=== PATIENT | female | born 1965 | race Caucasian/White ===

== ENCOUNTER 2018-04-02 17:55 | Emergency (ER) | payer SELFPAY ==
[2018-04-02 18:18] VITALS: BP 170/80
[2018-04-02] MEDS ORDERED: OXYCODONE-ACETAMINOPHEN 5-325 MG TABLET PO ONE (20:52)
[2018-04-02] MEDS ORDERED: ONDANSETRON 4 MG TAB.RAPDIS PO ONE (20:52)
--- NOTE | 2018-04-02 20:55 | ER Document Report ---
Addendum entered and electronically signed by SUNITHA DU PA 04/03/18 03:51: Course - Re-evaluation Re-evalutation: I was called into the blood drawing area by the tech after initial attempt had been made to obtain patient's blood. This was on patient's request (to see me). Patient pointed out to me an area in the left antecubital area that appears to have some infiltration after phlebotomy attempt was made, no other abnormalities were noted. Patient states she is very upset about this, she states that she will no longer be treated at the facility, she states she wanted to show me this but she is leaving. I explained that she could have any number of abnormalities including infectious, surgical, or even lethal abnormalities wrong with her based on her presenting symptoms and her history, I urged her to let us attempt to continue her workup. Patient declined. Patient states that she understands that she could have a life-threatening abnormality, however she will be signing out AGAINST MEDICAL ADVICE and we will not be able to change her mind. I did attempt to change her mind and offered again to treat her here with additional attempt but she declined. She does appear to be completely oriented and capable of making clear decisions. Patient verbalizes understanding of the risks, signed AGAINST MEDICAL ADVICE paperwork, and left the facility. - Vital Signs Vital signs: Temp Pulse Resp BP Pulse Ox 98.7 F 109 H 16 170/80 H 100 04/02/18 18:15 04/02/18 18:15 04/02/18 18:15 04/02/18 18:15 04/02/18 18:15 Addendum entered and electronically signed by SUNITHA DU PA 04/02/18 21:18: Discharge - Discharge Clinical Impression: Flank pain Abdominal pain Qualifiers: Abdominal location: upper abdomen, unspecified Qualified Code(s): R10.10 - Upper abdominal pain, unspecified Vomiting Qualifiers: Vomiting type: unspecified Vomiting Intractability: unspecified Nausea presence: with nausea Qualified Code(s): R11.2 - Nausea with vomiting, unspecified Disposition: AGAINST MEDICAL ADVICE Additional Instructions: You are signing out AGAINST MEDICAL ADVICE at this time. It is possible that you have a surgical or infectious abnormality that could lead to severe complications or even . I strongly recommend that you return at any time for additional evaluation and treatment. Original Note: ED Medical Screen (RME) - General Chief Complaint: Abdominal Pain Stated Complaint: FLANK PAIN/VOMITING/NAUSEA Time Seen by Provider: 04/02/18 20:51 Notes: 52-year-old female with chief complaint of upper abdominal pain radiating around to her right flank and an episode of vomiting at 5:30 PM. Pain is sharp. She is a history of cholecystectomy, chronic pancreatitis, Deisy-en-Y, common bile duct surgery. She denies fever. She is having bowel movements. She denies chest pain, shortness of breath. TRAVEL OUTSIDE OF THE [place] IN LAST 30 DAYS: No - Related Data Allergies/Adverse Reactions: adhesive tape Allergy (Verified 04/02/18 18:13) aloe Allergy (Verified 04/02/18 18:10) butorphanol [From Stadol] Allergy (Verified 04/02/18 18:13) erythromycin base Allergy (Verified 04/02/18 18:13) ketorolac [From Toradol] Allergy (Verified 04/02/18 18:13) levofloxacin [From Levaquin] Allergy (Verified 04/02/18 18:13) morphine Allergy (Verified 04/02/18 18:10) piperacillin Allergy (Verified 04/02/18 18:13) promethazine [From Phenergan] Allergy (Verified 04/02/18 18:13) tazobactam Allergy (Verified 04/02/18 18:13) tramadol Allergy (Verified 04/02/18 18:13) bactrin Allergy (Uncoded 04/02/18 18:13) eggs Allergy (Uncoded 04/02/18 18:13) zosyn Allergy (Uncoded 04/02/18 18:13) Physical Exam - Vital signs Vitals: Temp Pulse Resp BP Pulse Ox 98.7 F 109 H 16 170/80 H 100 04/02/18 18:15 04/02/18 18:15 04/02/18 18:15 04/02/18 18:15 04/02/18 18:15 - General General appearance: Appears well In distress: None Course - Re-evaluation Re-evalutation: I have greeted and performed a rapid initial assessment of this patient. A comprehensive ED assessment and evaluation of the patient, analysis of test results and completion of the medical decision making process will be conducted by additional ED providers. - Vital Signs Vital signs: Temp Pulse Resp BP Pulse Ox 98.7 F 109 H 16 170/80 H 100 04/02/18 18:15 04/02/18 18:15 04/02/18 18:15 04/02/18 18:15 04/02/18 18:15
== END 2018-04-02 21:28 | disposition left against medical advice (07) ==
LOC: ER 17:55
DX: R10.9 Unspecified abdominal pain (principal); R10.10 Upper abdominal pain, unspecified; R11.2 Nausea with vomiting, unspecified; Z88.6 Allergy status to analgesic agent; Z90.49 Acquired absence of other specified parts of digestive tract; Z91.012 Allergy to eggs
CPT/HCPCS: 99283

== ENCOUNTER 2018-04-05 11:04 | Emergency (ER) | payer SELFPAY ==
--- NOTE | 2018-04-05 13:35 | ER Document Report ---
ED Medical Screen (RME) - General Chief Complaint: Abdominal Pain Stated Complaint: ABDOMINAL PAIN Time Seen by Provider: 04/05/18 13:26 Notes: 52-year-old female patient comes emergency room complaining of abdominal pain. She was seen here on 04/02/2018 and had right flank pain at that time with vomiting. They had difficulty getting blood and she left AMA after the PIT rapid medical evaluation. She returns today stating the pain is all in her upper abdomen now for the last 2 days, she is now clammy, some vomiting, and has a mucousy type diarrhea. She states she does have a history of a pancreatic cyst, does not know if it is a pseudocyst the cyst was first discovered 10 months ago. She does have chronic pancreatitis. She had an MRCP in [place], and then a second 1 3 months ago in [place]. She is from [place] and was visiting family in [place] at the time. She is now visiting here in the [place] area. I have greeted and performed a rapid initial assessment of this patient. A comprehensive ED assessment and evaluation of the patient, analysis of test results and completion of the medical decision making process will be conducted by additional ED providers. TRAVEL OUTSIDE OF THE [place] IN LAST 30 DAYS: No - Related Data Allergies/Adverse Reactions: adhesive tape Allergy (Verified 04/05/18 11:07) aloe Allergy (Verified 04/05/18 11:07) butorphanol [From Stadol] Allergy (Verified 04/05/18 11:07) erythromycin base Allergy (Verified 04/05/18 11:07) ketorolac [From Toradol] Allergy (Verified 04/05/18 11:07) levofloxacin [From Levaquin] Allergy (Verified 04/05/18 11:07) morphine Allergy (Verified 04/05/18 11:07) piperacillin Allergy (Verified 04/05/18 11:07) promethazine [From Phenergan] Allergy (Verified 04/05/18 11:07) tazobactam Allergy (Verified 04/05/18 11:07) tramadol Allergy (Verified 04/05/18 11:07) bactrin Allergy (Uncoded 04/05/18 11:07) eggs Allergy (Uncoded 04/05/18 11:07) zosyn Allergy (Uncoded 04/05/18 11:07) Past Medical History - Past Medical History Cardiac Medical History: Reports: Hx Hypercholesterolemia Renal/ Medical History: Denies: Hx Peritoneal Dialysis Past Surgical History: Reports: 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
[2018-04-05 14:47] LABS: APPEARANCE,URINE CLOUDY; BILIRUBIN,URINE NEGATIVE (NEGATIVE); COLOR,URINE YELLOW; GLUCOSE, URINE NEGATIVE (NEGATIVE); KETONES,URINE NEGATIVE (NEGATIVE); LEUKOCYTE ESTERASE,URINE TRACE (NEGATIVE); NITRITE,URINE POSITIVE (NEGATIVE); PROTEIN,URINE 30 mg/dL (NEGATIVE); URINE SPECIFIC GRAVITY 1.034
[2018-04-05] MEDS ORDERED: ONDANSETRON HCL INJ/PF 4 MG/2 ML SDV IM ONE ×2 (15:38→18:06)
[2018-04-05] MEDS ORDERED: HYDROMORPHONE HCL INJ/PF 2 MG/ML AMPULE IM ONE ×2 (15:38→18:05)
[2018-04-05 15:41] LABS: ABSOLUTE BASOPHILS # (AUTO) 0.1 10^3/uL (0.0-0.2); ABSOLUTE MONOCYTES (AUTO) 0.4 10^3/uL (0.1-1.4); ABSOLUTE NEUT (AUTO) 4.5 10^3/uL (1.7-8.2); BASOPHILS % (AUTO) 0.8 % (0-2); EOSINOPHILS % (AUTO) 0.4 % (0-6); HEMATOCRIT 40.5 % (36.0-47.0); HEMOGLOBIN 13.7 g/dL (12.0-15.5); LYMPHOCYTES % (AUTO) 28.7 % (13-45); MEAN CORPUSCULAR HEMOGLOBIN 28.8 pg (27.0-33.4); MEAN CORPUSCULAR HGB CONC 33.9 g/dL (32.0-36.0); MEAN CORPUSCULAR VOLUME 85 fl (80-97); MONOCYTES % (AUTO) 5.3 % (3-13); PLATELET COUNT 335 10^3/uL (150-450); RED BLOOD COUNT 4.77 10^6/uL (3.72-5.28); RED CELL DISTRIBUTION WIDTH 13.9 % (11.5-14.0); SEGMENTED NEUTROPHILS % (AUTO) 64.8 % (42-78); TOTAL CELLS COUNTED % (AUTO) 100 %; WHITE BLOOD COUNT 6.9 10^3/uL (4.0-10.5)
[2018-04-05 16:00] LABS: ALANINE AMINOTRANSFERASE 26 U/L (9-52); ALBUMIN 4.7 g/dL (3.5-5.0); ALKALINE PHOSPHATASE 106 U/L (38-126); ANION GAP 11 (5-19); ASPARTATE AMINO TRANSFERASE 17 U/L (14-36); BILIRUBIN,DIRECT 0.3 mg/dL (0.0-0.4); BILIRUBIN,TOTAL 0.4 mg/dL (0.2-1.3); BLOOD UREA NITROGEN 16 mg/dL (7-20); CALCIUM 9.6 mg/dL (8.4-10.2); CARBON DIOXIDE 25 mmol/L (22-30); CHLORIDE 104 mmol/L (98-107); GLUCOSE 123 mg/dL (75-110); LIPASE 287.4 U/L (23-300); POTASSIUM 4.2 mmol/L (3.6-5.0); SODIUM 140.4 mmol/L (137-145); TOTAL PROTEIN 7.8 g/dL (6.3-8.2)
--- NOTE | 2018-04-05 18:19 | ER Document Report ---
ED General - General Chief Complaint: Abdominal Pain Stated Complaint: ABDOMINAL PAIN Time Seen by Provider: 04/05/18 13:26 Mode of Arrival: Ambulatory Information source: Patient TRAVEL OUTSIDE OF THE [place] 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 Nothing is a seemed to help with this pain, eating seems to make it somewhat worse. She has had her gallbladder removed in the past as well as appendix and is currently followed at [facility] for these issues by a surgeon because of her difficulty she has not been in contact with them recently. Does take multiple medications to try and help with her pain. - Related Data Allergies/Adverse Reactions: adhesive tape Allergy (Verified 04/05/18 11:07) aloe Allergy (Verified 04/05/18 11:07) butorphanol [From Stadol] Allergy (Verified 04/05/18 11:07) erythromycin base Allergy (Verified 04/05/18 11:07) ketorolac [From Toradol] Allergy (Verified 04/05/18 11:07) levofloxacin [From Levaquin] Allergy (Verified 04/05/18 11:07) morphine Allergy (Verified 04/05/18 11:07) piperacillin Allergy (Verified 04/05/18 11:07) promethazine [From Phenergan] Allergy (Verified 04/05/18 11:07) tazobactam Allergy (Verified 04/05/18 11:07) tramadol Allergy (Verified 04/05/18 11:07) bactrin Allergy (Uncoded 04/05/18 11:07) eggs Allergy (Uncoded 04/05/18 11:07) zosyn Allergy (Uncoded 04/05/18 11:07) Past Medical History - General Information source: Patient - Social History Smoking Status: Never Smoker Chew tobacco use (# tins/day): No Frequency of alcohol use: None Drug Abuse: None Family History: None Patient has suicidal ideation: No Patient has homicidal ideation: No - Past Medical History Cardiac Medical History: Reports: Hx Hypercholesterolemia Renal/ Medical History: Denies: Hx Peritoneal Dialysis Past Surgical History: Reports: 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, Hx Bowel Surgery, Hx Cholecystectomy, Hx Hysterectomy, Hx Orthopedic Surgery Review of Systems - Review of Systems -: Yes All other systems reviewed and negative Physical Exam - Vital signs Vitals: Temp Pulse Resp BP Pulse Ox 98.0 F 111 H 18 159/74 H 99 04/05/18 11:16 04/05/18 11:16 04/05/18 11:16 04/05/18 11:16 04/05/18 11:16 - General General appearance: Alert, Anxious In distress: Moderate - HEENT Head: Normocephalic Eyes: Normal Conjunctiva: Normal Cornea: Normal Extraocular movements intact: Yes Eyelashes: Normal Pupils: PERRL - Respiratory Respiratory status: No respiratory distress Chest status: Nontender Breath sounds: Normal Chest palpation: Normal - Cardiovascular Rhythm: Regular Heart sounds: Normal auscultation - Abdominal Inspection: Obese, Other - Profound number of well-healed incision scars across the abdomen Distension: No distension Tenderness: Tender - Back Back: Normal, Nontender - Extremities General upper extremity: Normal inspection, Nontender, Normal color, Normal ROM, Normal temperature General lower extremity: Normal inspection, Nontender, Normal color, Normal ROM, Normal temperature, Normal weight bearing. No: Byron's sign - Neurological Neuro grossly intact: Yes Cognition: Normal Orientation: AAOx4 Kentrell Coma Scale Eye Opening: Spontaneous Kentrell Coma Scale Verbal: Oriented Kentrell Coma Scale Motor: Obeys Commands Kentrell Coma Scale Total: 15 Speech: Normal Motor strength normal: LUE, RUE, LLE, RLE Sensory: Normal - Psychological Associated symptoms: Normal affect, Normal mood Course - Re-evaluation Re-evalutation: On my initial evaluation of this patient she demonstrated extreme frustration related to the delay in her care which she perceived as a result of her poor access from her veins. I discussed with the patient the intent to help treat her, we proceeded with the administration of IM medications for both pain and nausea and a fashion to allow further workup including chemistry as well as CMP and CT of the abdomen and pelvis for her profound tenderness in the abdomen most prominent on the right side. Her CBC was normal, her CMP was normal. She was able to tolerate p.o. thereafter. She was able to tolerate oral contrast. She received another dose of narcotic analgesia as well as nausea medication. Her urine demonstrated what appeared to be evidence of possible pyelonephritis. With her urine as such was concern for possible underlying infection. Her CT did not demonstrate any obvious intra-abdominal pathology such as but not limited to diverticulitis, bowel obstruction, bowel perforation, it is noteworthy that she did have a year in the biliary tree though this is likely result of her previous surgeries and not unexpected given her resection in the past. Her abdominal examination improved on my reassessment, we discussed treatment options and opted for pursuit of outpatient management of her presumptive urinary tract infection. She will be discharged with return precautions and treatment we will initially try nitrofurantoin and if she does not have improvement on this medication she will change to ciprofloxacin. She is also been given a prescription for Zofran and some narcotic pain medication because she is already on chronic pain medication I believe this is warranted. At the time of discharge her abdominal examination was benign she was well- appearing able tolerate p.o. - Vital Signs Vital signs: Temp Pulse Resp BP Pulse Ox 98.6 F 86 16 149/71 H 98 04/05/18 21:49 04/05/18 21:49 04/05/18 21:49 04/05/18 21:49 04/05/18 21:49 - Laboratory Result Diagrams: 04/05/18 15:29 04/05/18 15:29 Laboratory results interpreted by me: 04/05/18 04/05/18 14:26 15:29 Glucose 123 H Urine Protein 30 H Urine Nitrite POSITIVE H Urine Urobilinogen 2.0 H Ur Leukocyte Esterase TRACE H Discharge - Discharge Clinical Impression: Pyelonephritis, Flank pain, Nausea Abdominal pain Qualifiers: Abdominal location: unspecified location Qualified Code(s): R10.9 - Unspecified abdominal pain Condition: Good Disposition: HOME, SELF-CARE Instructions: Ciprofloxacin (OM), Pyelonephritis (OM) Additional Instructions: You were seen today in the emergency department for your abdominal pain and flank pain. you had evaluation including a CAT scan, urine test, blood test. I think that your pain is from pyelonephritis. You been given a medication to use to try and help with this pain. Use medication only as needed. Start taking the Macrobid, if you did not have any improvement with the Macrobid and 2 days switch it to the ciprofloxacin prescribed to you. Use the nausea medication only as needed. Return in case of worsening fevers or chills inability eat or drink or other symptoms otherwise schedule an appointment with your primary physician this week. Prescriptions: Ciprofloxacin HCl [Cipro] 500 mg PO BID #14 tablet Nitrofurantoin Macrocrystal [Macrodantin] 100 mg PO BID #20 capsule Ondansetron [Zofran Odt 4 mg Tablet] 1 - 2 tab PO Q4H PRN #15 tab.rapdis PRN Reason: For Nausea/Vomiting Oxycodone HCl/Acetaminophen [Percocet 5-325 mg Tablet] 1 - 2 tab PO Q4H PRN #15 tablet PRN Reason:
--- NOTE | 2018-04-05 19:09 | RADIOLOGY REPORT (SQ) ---
EXAM DESCRIPTION: CT ABD/PELVIS ORAL ONLY COMPLETED DATE/TIME: 04/05/2018 6:51 pm REASON FOR STUDY: abdominal pain COMPARISON: None. TECHNIQUE: CT scan of the abdomen and pelvis performed without intravenous or oral contrast. Images reviewed with lung, soft tissue, and bone windows. Reconstructed coronal and sagittal MPR images revi ewed. All images stored on PACS. All CT scanners at this facility use dose modulation, iterative reconstruction, and/or weight based d osing when appropriate to reduce radiation dose to as low as reasonably achievable (ALARA). [facility]: Dose Right [facility]: CareDose [facility]: Dose Right [facility]: Teradose 4D [facility]: [employer] RADIATION DOSE: CT Rad equipment meets quality standard of care and radiation dose reduction techniq ues were employed. CTDIvol: 8.4 mGy. DLP: 459 mGy-cm.mGy. LIMITATIONS: None. FINDINGS: LOWER CHEST: No significant findings. No nodules or infiltrates. NON-CONTRASTED LIVER, SPLEEN, ADRENALS: Evaluation limited by lack of IV contrast. Gas in the biliar y system of the left lobe of the liver. No identified significant masses. PANCREAS: No masses. No peripancreatic inflammatory changes. GALLBLADDER: Surgically absent. RIGHT KIDNEY AND URETER: No suspicious masses. Assessment limited by lack of IV contrast. No signif icant calcifications. No hydronephrosis or hydroureter. LEFT KIDNEY AND URETER: No suspicious masses. Assessment limited by lack of IV contrast. No signifi cant calcifications. No hydronephrosis or hydroureter. AORTA AND RETROPERITONEUM: No aneurysm. No retroperitoneal masses or adenopathy. BOWEL AND PERITONEAL CAVITY: Previous bowel surgery. No obvious masses or inflammatory changes. No f ree fluid. APPENDIX: Normal. PELVIS, BLADDER, AND ABDOMINAL WALL:No abnormal masses. No free fluid. Bladder normal. BONES: No significant findings. OTHER: No other significant finding. IMPRESSION: GAS IN THE BILIARY SYSTEM OF THE LEFT LOBE OF THE LIVER, LIKELY DUE TO PREVIOUS SURGERY AND BILIARY MANIPULATION. PREVIOUS BOWEL SURGERY. OTHERWISE NO SIGNIFICANT OR ACUTE PROCESS IN THE ABDOMEN OR PELVIS. COMMENT: Quality ID # [id number]: Final reports with documentation of one or more dose reduction techniques (e.g., Automated exposure control, adjustment of the mA and/or kV according to patient size, use of iterative reconstruction technique) TECHNICAL DOCUMENTATION: JOB ID: [id number] 1297[employer]- All Rights Reserved Reading location - IP/workstation name: [email or web address]
[2018-04-05 21:52] VITALS: BP 149/71
== END 2018-04-05 21:53 | disposition home or self-care (01) ==
LOC: ER 11:04
DX: N12 Tubulo-interstitial nephritis, not specified as acute or chronic (principal); R11.0 Nausea; R10.9 Unspecified abdominal pain; R19.4 Change in bowel habit; G89.29 Other chronic pain; Z79.891 Long term (current) use of opiate analgesic; Z90.49 Acquired absence of other specified parts of digestive tract; Z91.048 Other nonmedicinal substance allergy status; Z88.5 Allergy status to narcotic agent; Z88.1 Allergy status to other antibiotic agents; Z88.8 Allergy status to other drugs, medicaments and biological substances; Z91.012 Allergy to eggs; Z88.0 Allergy status to penicillin
CPT/HCPCS: 99284; 96372; 36415; 83690; 85025; 80053; 81001; 74176; J1170; J2405

== ENCOUNTER 2018-05-02 16:36 | Emergency (ER) | payer SELFPAY ==
--- NOTE | 2018-05-02 17:56 | ER Document Report ---
ED Medical Screen (RME) - General Chief Complaint: Nausea/Vomiting/Diarrhea Stated Complaint: ABDOMINAL PAIN, DIARRHEA, VOMITING Time Seen by Provider: 05/02/18 17:41 Notes: Patient is a 52-year-old female with history of pancreatitis that presents to the emergency department for chief complaint of left-sided abdominal pain, and epigastric pain. Patient states his been having nausea and vomiting associated with her pain, not improving over the past few days. ROS: Other than noted above, the 12 point review of systems was reviewed with the patient and were negative, all pertinent findings are included in the HPI. PHYSICAL EXAMINATION: Vital signs reviewed. GENERAL: Patient appears uncomfortable on exam HEAD: Atraumatic, normocephalic. EYES: Pupils equal round extraocular movements intact, conjunctiva are normal. ENT: Nares patent NECK: Normal range of motion CV: Heart regular rate and rhythm LUNGS: No respiratory distress Musculoskeletal: Normal range of motion Abdomen: Epigastric tenderness to palpation NEUROLOGICAL: Normal speech PSYCH: Normal mood, normal affect. MDM: Patient seen and examined for rapid initial assessment. Vital signs reviewed. A comprehensive ED assessment and evaluation of the patient, analysis of test results and completion of the medical decision making process will be conducted by additional ED providers. *Note is created using voice recognition software and may contain spelling, syntax or grammatical errors. TRAVEL OUTSIDE OF THE [place] IN LAST 30 DAYS: No - Related Data Allergies/Adverse Reactions: adhesive tape Allergy (Verified 04/05/18 11:07) aloe Allergy (Verified 04/05/18 11:07) butorphanol [From Stadol] Allergy (Verified 04/05/18 11:07) erythromycin base Allergy (Verified 04/05/18 11:07) exemestane [From Aromasin] Allergy (Verified 05/02/18 17:58) ketorolac [From Toradol] Allergy (Verified 04/05/18 11:07) latex Allergy (Verified 05/02/18 17:58) levofloxacin [From Levaquin] Allergy (Verified 04/05/18 11:07) morphine Allergy (Verified 04/05/18 11:07) piperacillin Allergy (Verified 04/05/18 11:07) promethazine [From Phenergan] Allergy (Verified 04/05/18 11:07) Sulfa (Sulfonamide Antibiotics) Allergy (Verified 05/02/18 17:58) sulfamethoxazole [From Bactrim] Allergy (Verified 05/02/18 17:58) tazobactam Allergy (Verified 04/05/18 11:07) tramadol Allergy (Verified 04/05/18 11:07) trimethoprim [From Bactrim] Allergy (Verified 05/02/18 17:58) bactrin Allergy (Uncoded 04/05/18 11:07) eggs Allergy (Uncoded 04/05/18 11:07) gi cocktail Allergy (Uncoded 05/02/18 17:58) walnuts Allergy (Uncoded 05/02/18 17:58) zosyn Allergy (Uncoded 04/05/18 11:07) Past Medical History - Social History Chew tobacco use (# tins/day): No Frequency of alcohol use: None Drug Abuse: None - Past Medical History Cardiac Medical History: Reports: Hx Hypercholesterolemia, Hx Hypertension Endocrine Medical History: Reports: Hx Diabetes Mellitus Type 1 Renal/ Medical History: Denies: Hx Peritoneal Dialysis. 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
[2018-05-02] MEDS ORDERED: NORMAL SALINE 1000 ML 1,000 ML IV ONE (17:57)
[2018-05-02] MEDS ORDERED: ONDANSETRON HCL INJ/PF 4 MG/2 ML SDV IV ONE ×2 (17:58→22:15)
[2018-05-02] MEDS ORDERED: FENTANYL CITRATE INJ/PF 100 MCG/2 ML AMPUL IV ONE (17:59)
[2018-05-02 19:09] LABS: APPEARANCE,URINE CLOUDY; BILIRUBIN,URINE NEGATIVE (NEGATIVE); CALCIUM OXALATE CRYSTALS,URINE MANY /HPF; COLOR,URINE YELLOW; GLUCOSE, URINE NEGATIVE (NEGATIVE); KETONES,URINE NEGATIVE (NEGATIVE); LEUKOCYTE ESTERASE,URINE NEGATIVE (NEGATIVE); NITRITE,URINE NEGATIVE (NEGATIVE); PROTEIN,URINE NEGATIVE (NEGATIVE); URINE SPECIFIC GRAVITY 1.032; UROBILINOGEN,URINE NEGATIVE mg/dL (<2.0)
[2018-05-02 19:30] LABS: ABSOLUTE LYMPHOCYTES (AUTO) 2.3 10^3/uL (0.5-4.7); ABSOLUTE MONOCYTES (AUTO) 0.5 10^3/uL (0.1-1.4); ABSOLUTE NEUT (AUTO) 3.9 10^3/uL (1.7-8.2); BASOPHILS % (AUTO) 0.7 % (0-2); EOSINOPHILS % (AUTO) 0.6 % (0-6); HEMATOCRIT 40.8 % (36.0-47.0); LYMPHOCYTES % (AUTO) 33.7 % (13-45); MEAN CORPUSCULAR HEMOGLOBIN 29.2 pg (27.0-33.4); MEAN CORPUSCULAR HGB CONC 34.2 g/dL (32.0-36.0); MEAN CORPUSCULAR VOLUME 85 fl (80-97); MONOCYTES % (AUTO) 7.6 % (3-13); PLATELET COUNT 330 10^3/uL (150-450); RED BLOOD COUNT 4.78 10^6/uL (3.72-5.28); RED CELL DISTRIBUTION WIDTH 13.3 % (11.5-14.0); SEGMENTED NEUTROPHILS % (AUTO) 57.4 % (42-78); TOTAL CELLS COUNTED % (AUTO) 100 %; WHITE BLOOD COUNT 6.7 10^3/uL (4.0-10.5)
[2018-05-02 19:39] LABS: ALANINE AMINOTRANSFERASE 26 U/L (9-52); ALBUMIN 4.6 g/dL (3.5-5.0); ALKALINE PHOSPHATASE 109 U/L (38-126); ANION GAP 11 (5-19); ASPARTATE AMINO TRANSFERASE 18 U/L (14-36); BILIRUBIN,DIRECT 0.2 mg/dL (0.0-0.4); BILIRUBIN,TOTAL 0.3 mg/dL (0.2-1.3); BLOOD UREA NITROGEN 12 mg/dL (7-20); CALCIUM 9.5 mg/dL (8.4-10.2); CARBON DIOXIDE 25 mmol/L (22-30); CHLORIDE 104 mmol/L (98-107); GLUCOSE 132 mg/dL (75-110); LIPASE 296.1 U/L (23-300); POTASSIUM 4.1 mmol/L (3.6-5.0); SODIUM 140.1 mmol/L (137-145)
[2018-05-02] MEDS ORDERED: HYDROMORPHONE HCL INJ/PF 2 MG/ML AMPULE IV ONE ×2 (19:57→22:15)
[2018-05-02] MEDS ORDERED: PANTOPRAZOLE SODIUM 40 MG VIAL IV ONE (20:06)
[2018-05-02] MEDS ORDERED: SUCRALFATE 1 GM TABLET PO ONE (20:06)
--- NOTE | 2018-05-02 20:07 | ER Document Report ---
ED GI/ - General Chief Complaint: Nausea/Vomiting/Diarrhea Stated Complaint: ABDOMINAL PAIN, DIARRHEA, VOMITING Time Seen by Provider: 05/02/18 17:41 Notes: Patient is a 52-year-old female that comes to the emergency department for chief complaint of left upper abdominal pain, 2 episodes of vomiting, and some loose stools today. Symptoms started today. She denies fever, hematemesis, hematochezia. Past medical history Deisy-en-Y surgery in 2010, common bile duct surgery, cholecystectomy, hysterectomy, small bowel obstruction. She [place] [facility] [place]. Past medical history of hypertension and she is treated with oxycodone for chronic pancreatitis. TRAVEL OUTSIDE OF THE [place] IN LAST 30 DAYS: No - Related Data Allergies/Adverse Reactions: adhesive tape Allergy (Verified 05/02/18 22:08) aloe Allergy (Verified 05/02/18 22:08) butorphanol [From Stadol] Allergy (Verified 05/02/18 22:08) erythromycin base Allergy (Verified 05/02/18 22:08) exemestane [From Aromasin] Allergy (Verified 05/02/18 22:08) ketorolac [From Toradol] Allergy (Verified 05/02/18 22:08) latex Allergy (Verified 05/02/18 22:08) levofloxacin [From Levaquin] Allergy (Verified 05/02/18 22:08) morphine Allergy (Verified 05/02/18 22:08) piperacillin Allergy (Verified 05/02/18 22:08) promethazine [From Phenergan] Allergy (Verified 05/02/18 22:08) Sulfa (Sulfonamide Antibiotics) Allergy (Verified 05/02/18 22:08) sulfamethoxazole [From Bactrim] Allergy (Verified 05/02/18 22:08) tazobactam Allergy (Verified 05/02/18 22:08) tramadol Allergy (Verified 05/02/18 22:08) trimethoprim [From Bactrim] Allergy (Verified 05/02/18 22:08) bactrin Allergy (Uncoded 05/02/18 22:08) eggs Allergy (Uncoded 05/02/18 22:08) gi cocktail Allergy (Uncoded 05/02/18 22:08) walnuts Allergy (Uncoded 05/02/18 22:08) zosyn Allergy (Uncoded 05/02/18 22:08) Past Medical History - General Information source: Patient - Social History Smoking Status: Never Smoker Chew tobacco use (# tins/day): No Frequency of alcohol use: None Drug Abuse: None Lives with: Family Family History: None Patient has suicidal ideation: No Patient has homicidal ideation: No - Past Medical History Cardiac Medical History: Reports: Hx Hypercholesterolemia, Hx Hypertension Endocrine Medical History: Reports: Hx Diabetes Mellitus Type 1 Renal/ Medical History: Denies: Hx Peritoneal Dialysis. Comment Only: Hx Kidney Stones - kidney cyst Past Surgical History: Reports: 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, Hx Bowel Surgery, Hx Cholecystectomy - cho;ledochoduodenostomy with hepaticojejunostony, Hx Hysterectomy, Hx Orthopedic Surgery - Immunizations Immunizations up to date: Yes Hx Diphtheria, Pertussis, Tetanus Vaccination: Yes Review of Systems - Review of Systems Constitutional: No symptoms reported EENT: No symptoms reported Cardiovascular: No symptoms reported Respiratory: No symptoms reported Gastrointestinal: See HPI Genitourinary: No symptoms reported Female Genitourinary: No symptoms reported Musculoskeletal: No symptoms reported Skin: No symptoms reported Hematologic/Lymphatic: No symptoms reported Neurological/Psychological: No symptoms reported Physical Exam - Vital signs Vitals: Temp Pulse Resp BP Pulse Ox 98.2 F 96 16 145/83 H 96 05/02/18 17:10 05/02/18 17:10 05/02/18 17:10 05/02/18 17:10 05/02/18 17:10 - Notes Notes: GENERAL: Appears mildly uncomfortable HEAD: Normocephalic, atraumatic. EYES: Pupils equal, round, and reactive to light. Extraocular movements intact. ENT: Oral mucosa moist, tongue midline. Oropharynx unremarkable. Airway patent. Nares patent, no nasal septal hematoma, TM's intact. NECK: Full range of motion. Supple. Trachea midline. LUNGS: Clear to auscultation bilaterally, no wheezes, rales, or rhonchi. No respiratory distress. HEART: Regular rate and rhythm. No murmur ABDOMEN: Multiple scars of the abdomen, these are large. No recent scars or wounds. Tenderness generally over the mid abdomen, worse in the left mid upper abdomen, nonspecific otherwise, no guarding. No rigidity. GENITOURINARY: Deferred EXTREMITIES: Moves all 4 extremities spontaneously. No edema, normal radial and dorsalis pedis pulses bilaterally. No cyanosis. BACK: no cervical, thoracic, lumbar midline tenderness. No saddle anesthesia, normal distal neurovascular exam. NEUROLOGICAL: Alert and oriented x3. Normal speech. [cranial nerves II through XII grossly intact]. PSYCH: Normal affect, normal mood. SKIN: Warm, dry, normal turgor. No rashes or lesions noted. Course - Re-evaluation Re-evalutation: Patient is uncomfortable on initial evaluation, pain is mainly in the mid to upper abdomen and left upper abdomen. However she is nontoxic, there is no guarding or rigidity. Vital signs unremarkable. Patient medicated. CBC unremarkable, chemistry unremarkable, urinalysis unremarkable, lipase is not elevated. Acute abdominal series showing dilated small bowel, possible ileus versus developing obstruction. Discussed with patient, decision was made to proceed with CAT scan to further evaluate because of her pain. CT resulted, shows no concerning finding. Appears the dilated area has resolved, possibly because of oral contrast, or possibly because this was normal to begin with. Pancreas does not appear calcified, I do not suspect chronic pancreatitis. Patient well-appearing on reevaluation. Discussed results with patient in detail, she is requesting a copy of her x-ray and CAT scan along with reports to take to her surgeon, she states she has close follow-up for this. No additional concerns because of patient's symptom resolution and well appearance, she is able to tolerate p.o., I discussed close follow-up and return precautions in detail. Patient states understanding and agreement with plan. - Vital Signs Vital signs: Temp Pulse Resp BP Pulse Ox 98.4 F 88 12 148/90 H 97 05/03/18 01:47 05/03/18 01:47 05/03/18 01:47 05/03/18 01:47 05/03/18 01:47 - Laboratory Result Diagrams: 05/02/18 19:07 05/02/18 19:07 Laboratory results interpreted by me: 05/02/18 19:07 Glucose 132 H Discharge - Discharge Clinical Impression: Abdominal pain Qualifiers: Abdominal location: left upper quadrant Qualified Code(s): R10.12 - Left upper quadrant pain Condition: Stable Disposition: HOME, SELF-CARE Additional Instructions: The dilated area of small bowel on the initial films resolved before the CAT scan was performed. This was most likely from the oral contrast. Bring your images in close follow-up with your surgeon. Return if you worsen including vomiting, fever, severe worsening pain, or any other concerning or worsening symptoms.
--- NOTE | 2018-05-02 21:00 | RADIOLOGY REPORT (SQ) ---
EXAM DESCRIPTION: XR ABDOMEN SUPINE AND ERECT WITH CHEST (ABD ACUTE SERIES) COMPLETED DATE/TME: 05/02/2018 20:06 CLINICAL HISTORY: 52 years, Female, abd pain, vomiting, hx bowel obstruction COMPARISON: None. NUMBER OF VIEWS: 4 TECHNIQUE: Upright chest with supine and erect views of the abdomen LIMITATIONS: None. FINDINGS: The heart size is normal. Scarring in the perihilar regions. Lungs are otherwise clear. No pneumothorax. No free air under the hemidiaphragms. Focally dilated air-filled loop of small bowel in the left midabdomen with maximal diameter 6.6 cm. Suture material is noted in this region. Findings could relate to focal ileus, however partial or incomplete obstruction is not excluded. Gas and stool in the colon. IMPRESSION: No acute cardiopulmonary process. Dilated air-filled loop of small bowel in the left midabdomen could relate to focal ileus with partial or incomplete obstruction not excluded copyright 2010 [employer]- All Rights Reserved
--- NOTE | 2018-05-02 22:27 | EKG REPORT ---
SEVERITY:- BORDERLINE ECG - SINUS RHYTHM BORDERLINE T ABNORMALITIES, INFERIOR LEADS : Confirmed by: Mannie Aldana MD 02-May-2018 22:26:43
--- NOTE | 2018-05-03 00:36 | RADIOLOGY REPORT (SQ) ---
EXAM DESCRIPTION: CT ABDOMEN PELVIS WITH IV CONTRAST COMPLETED DATE/TME: 05/02/2018 00:00 CLINICAL HISTORY: 52 years, Female, vomiting, abd pain, hx bowel obstruction Comparison: April 05, 2018 TECHNIQUE: Contiguous axial CT images of the abdomen and pelvis were obtained. Sagittal and coronal reformats were reviewed. This exam was performed according to our departmental dose-optimization program, which includes automated exposure control, adjustment of the mA and/or kV according to patient size and/or use of iterative reconstruction technique. FINDINGS: Lung bases: Clear. Liver: Mild dilatation of the intrahepatic ducts in both lobes with bile and air similar in appearance to the previous study. No focal abnormalities. Gallbladder:Cholecystectomy clips seen in gallbladder fossa. Spleen:Unremarkable Pancreas: Pancreas is unremarkable. Adrenal glands:Within normal limits. Kidneys/ureters:Within normal limits Stomach/small bowel/colon: Stomach is unremarkable. Suture lines are present in the small bowel. Small bowel is otherwise unremarkable. Colon is unremarkable. Appendix: No evidence of appendicitis. Peritoneum: No free fluid. Vascular structures: within normal limits Lymph nodes: No abnormal lymph nodes. Bladder:Unremarkable. Pelvic organs: No acute abnormality Bones: No acute osseous abnormality. Soft tissues: Unremarkable.. IMPRESSION: No acute intra-abdominal abnormality.
[2018-05-03] MEDS ORDERED: HYDROMORPHONE HCL INJ/PF 2 MG/ML AMPULE IV ONE (00:50)
[2018-05-03 01:48] VITALS: BP 148/90
== END 2018-05-03 01:55 | disposition home or self-care (01) ==
LOC: ER 16:36
DX: K86.1 Other chronic pancreatitis (principal); Z79.891 Long term (current) use of opiate analgesic; R10.12 Left upper quadrant pain; R11.2 Nausea with vomiting, unspecified; R19.7 Diarrhea, unspecified; I10 Essential (primary) hypertension; E10.9 Type 1 diabetes mellitus without complications; Z90.49 Acquired absence of other specified parts of digestive tract; Z87.19 Personal history of other diseases of the digestive system; Z90.710 Acquired absence of both cervix and uterus; Z98.890 Other specified postprocedural states; Z91.048 Other nonmedicinal substance allergy status; Z88.8 Allergy status to other drugs, medicaments and biological substances; Z88.1 Allergy status to other antibiotic agents; Z91.040 Latex allergy status; Z88.5 Allergy status to narcotic agent; Z88.0 Allergy status to penicillin; Z88.2 Allergy status to sulfonamides; Z91.012 Allergy to eggs; Z91.018 Allergy to other foods
CPT/HCPCS: 93005; 96376; 99284; 96361; 96374; 96375; 36415; 83690; 85025; 80053; 81001; 84484; 74022; 74177; 93010; J1170 ×2; S0164; J2405; J7030

== ENCOUNTER 2018-06-06 14:29 | Emergency (ER) | payer SELFPAY ==
--- NOTE | 2018-06-06 15:16 | ER Document Report ---
ED Medical Screen (RME) - General Chief Complaint: Flank Pain Stated Complaint: FLANK PAIN Time Seen by Provider: 06/06/18 15:13 Mode of Arrival: Ambulatory Information source: Patient TRAVEL OUTSIDE OF THE [place] IN LAST 30 DAYS: No - HPI Patient complains to provider of: R flank pain Onset: Yesterday - pt with R flank pain and frequency for the past 1-2 days. - Related Data Allergies/Adverse Reactions: adhesive tape Allergy (Verified 06/06/18 14:44) aloe Allergy (Verified 06/06/18 14:44) butorphanol [From Stadol] Allergy (Verified 06/06/18 14:44) erythromycin base Allergy (Verified 06/06/18 14:44) exemestane [From Aromasin] Allergy (Verified 06/06/18 14:44) ketorolac [From Toradol] Allergy (Verified 06/06/18 14:44) latex Allergy (Verified 06/06/18 14:44) levofloxacin [From Levaquin] Allergy (Verified 06/06/18 14:44) morphine Allergy (Verified 06/06/18 14:44) piperacillin Allergy (Verified 06/06/18 14:44) promethazine [From Phenergan] Allergy (Verified 06/06/18 14:44) Sulfa (Sulfonamide Antibiotics) Allergy (Verified 06/06/18 14:44) sulfamethoxazole [From Bactrim] Allergy (Verified 06/06/18 14:44) tazobactam Allergy (Verified 06/06/18 14:44) tramadol Allergy (Verified 06/06/18 14:44) trimethoprim [From Bactrim] Allergy (Verified 06/06/18 14:44) bactrin Allergy (Uncoded 06/06/18 14:44) eggs Allergy (Uncoded 06/06/18 14:44) gi cocktail Allergy (Uncoded 06/06/18 14:44) walnuts Allergy (Uncoded 06/06/18 14:44) zosyn Allergy (Uncoded 06/06/18 14:44) Past Medical History - Past Medical History Cardiac Medical History: Reports: Hx Hypercholesterolemia, Hx Hypertension Endocrine Medical History: Reports: Hx Diabetes Mellitus Type 1 Renal/ Medical History: Denies: Hx Peritoneal Dialysis. Comment Only: Hx Ki dney Stones - kidney cyst Past Surgical History: Reports: 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, Hx Bowel Surgery, Hx Cholecystectomy - choledochoduodenostomy with hepaticojejunostony, Hx Hysterectomy, Hx Orthopedic Surgery - Immunizations Immunizations up to date: Yes Hx Diphtheria, Pertussis, Tetanus Vaccination: Yes Physical Exam - Vital signs Vitals: Temp Pulse Resp BP Pulse Ox 99.0 F 103 H 16 181/83 H 98 06/06/18 14:59 06/06/18 14:59 06/06/18 14:59 06/06/18 14:59 06/06/18 14:59 Course - Vital Signs Vital signs: Temp Pulse Resp BP Pulse Ox 99.0 F 103 H 16 181/83 H 98 06/06/18 14:59 06/06/18 14:59 06/06/18 14:59 06/06/18 14:59 06/06/18 14:59
[2018-06-06 16:11] LABS: APPEARANCE,URINE SLIGHTLY-CLOUDY; BILIRUBIN,URINE NEGATIVE (NEGATIVE); COLOR,URINE YELLOW; GLUCOSE, URINE NEGATIVE (NEGATIVE); KETONES,URINE NEGATIVE (NEGATIVE); LEUKOCYTE ESTERASE,URINE NEGATIVE (NEGATIVE); NITRITE,URINE POSITIVE (NEGATIVE); PROTEIN,URINE NEGATIVE (NEGATIVE); URINE SPECIFIC GRAVITY 1.023; UROBILINOGEN,URINE NEGATIVE mg/dL (<2.0)
[2018-06-06 17:11] LABS: ABSOLUTE LYMPHOCYTES (AUTO) 2.3 10^3/uL (0.5-4.7); ABSOLUTE MONOCYTES (AUTO) 0.4 10^3/uL (0.1-1.4); ABSOLUTE NEUT (AUTO) 4.3 10^3/uL (1.7-8.2); BASOPHILS % (AUTO) 0.6 % (0-2); EOSINOPHILS % (AUTO) 0.6 % (0-6); HEMATOCRIT 41.9 % (36.0-47.0); HEMOGLOBIN 14.1 g/dL (12.0-15.5); LYMPHOCYTES % (AUTO) 32.9 % (13-45); MEAN CORPUSCULAR HEMOGLOBIN 29.3 pg (27.0-33.4); MEAN CORPUSCULAR HGB CONC 33.7 g/dL (32.0-36.0); MEAN CORPUSCULAR VOLUME 87 fl (80-97); MONOCYTES % (AUTO) 5.4 % (3-13); PLATELET COUNT 354 10^3/uL (150-450); RED BLOOD COUNT 4.81 10^6/uL (3.72-5.28); RED CELL DISTRIBUTION WIDTH 13.6 % (11.5-14.0); SEGMENTED NEUTROPHILS % (AUTO) 60.5 % (42-78); TOTAL CELLS COUNTED % (AUTO) 100 %; WHITE BLOOD COUNT 7.1 10^3/uL (4.0-10.5)
[2018-06-06] MEDS ORDERED: NORMAL SALINE 1000 ML 1,000 ML IV ONE (17:12)
[2018-06-06 17:23] LABS: ALANINE AMINOTRANSFERASE 30 U/L (9-52); ALBUMIN 4.5 g/dL (3.5-5.0); ALKALINE PHOSPHATASE 105 U/L (38-126); ANION GAP 10 (5-19); ASPARTATE AMINO TRANSFERASE 22 U/L (14-36); BILIRUBIN,DIRECT 0.3 mg/dL (0.0-0.4); BILIRUBIN,TOTAL 0.3 mg/dL (0.2-1.3); BLOOD UREA NITROGEN 12 mg/dL (7-20); CALCIUM 9.9 mg/dL (8.4-10.2); CARBON DIOXIDE 22 mmol/L (22-30); CHLORIDE 106 mmol/L (98-107); GLUCOSE 229 mg/dL (75-110); POTASSIUM 4.1 mmol/L (3.6-5.0); SODIUM 138.3 mmol/L (137-145); TOTAL PROTEIN 7.9 g/dL (6.3-8.2)
[2018-06-06] MEDS ORDERED: ONDANSETRON HCL INJ/PF 4 MG/2 ML SDV IV ONE (17:23)
[2018-06-06] MEDS ORDERED: HYDROMORPHONE HCL INJ/PF 2 MG/ML AMPULE IV ONE (17:23)
--- NOTE | 2018-06-06 17:50 | RADIOLOGY REPORT (SQ) ---
EXAM DESCRIPTION: CT ABD/PELVIS NO ORAL OR IV COMPLETED DATE/TIME: 06/06/2018 5:32 pm REASON FOR STUDY: R flank pain COMPARISON: 05/03/2018 and 04/05/2018. TECHNIQUE: CT scan of the abdomen and pelvis performed without intravenous or oral contrast. Images reviewed with lung, soft tissue, and bone windows. Reconstructed coronal and sagittal MPR images revi ewed. All images stored on PACS. All CT scanners at this facility use dose modulation, iterative reconstruction, and/or weight based d osing when appropriate to reduce radiation dose to as low as reasonably achievable (ALARA). [facility]: Dose Right [facility]: CareDose [facility]: Dose Right [facility]: Teradose 4D [facility]: Into The Gloss RADIATION DOSE: CT Rad equipment meets quality standard of care and radiation dose reduction techniq ues were employed. CTDIvol: 8.8 mGy. DLP: 520 mGy-cm.mGy. LIMITATIONS: None. FINDINGS: LOWER CHEST: No significant findings. No nodules or infiltrates. NON-CONTRASTED LIVER, SPLEEN, ADRENALS: Evaluation limited by lack of IV contrast. Again seen is gas in the biliary system. No identified significant masses. PANCREAS: No masses. No peripancreatic inflammatory changes. GALLBLADDER: Surgically absent. RIGHT KIDNEY AND URETER: No suspicious masses. Assessment limited by lack of IV contrast. No signif icant calcifications. No hydronephrosis or hydroureter. LEFT KIDNEY AND URETER: No suspicious masses. Assessment limited by lack of IV contrast. No signifi cant calcifications. No hydronephrosis or hydroureter. AORTA AND RETROPERITONEUM: No aneurysm. No retroperitoneal masses or adenopathy. BOWEL AND PERITONEAL CAVITY: Previous bowel surgery. No obvious masses or inflammatory changes. No f ree fluid. APPENDIX: Normal. PELVIS, BLADDER, AND ABDOMINAL WALL:No abnormal masses. No free fluid. Bladder normal. BONES: No significant findings. OTHER: No other significant finding. IMPRESSION: STABLE APPEARANCE WITH SURGICAL CHANGES. NO SIGNIFICANT OR ACUTE PROCESS IN THE ABDOMEN OR PELVIS. COMMENT: Quality ID # [id number]: Final reports with documentation of one or more dose reduction techniques (e.g., Automated exposure control, adjustment of the mA and/or kV according to patient size, use of iterative reconstruction technique) TECHNICAL DOCUMENTATION: JOB ID: [id number] [employer]- All Rights Reserved Reading location - IP/workstation name: [email or web address]
[2018-06-06] MEDS ORDERED: DOXYCYCLINE HYCLATE 100 MG TABLET PO ONE (18:21)
[2018-06-06] MEDS ORDERED: PHENAZOPYRIDINE HCL 200 MG TABLET PO ONE (18:21)
[2018-06-06 19:00] VITALS: BP 162/78
--- NOTE | 2018-06-06 22:17 | ER Document Report ---
Entered by SANDRA GREEN SCRIBE 06/06/18 1731 Acting as scribe for:MECHE JAMIL DO ED GI/ - General Chief Complaint: Flank Pain Stated Complaint: FLANK PAIN Time Seen by Provider: 06/06/18 15:13 Mode of Arrival: Ambulatory Information source: Patient Notes: 52 year old female that presents to the emergency department today with complaints of right sided flank pain that radiates down to her right lower abdomen. Patient states that she has had this pain for x2-3 days. Patient states that she "has a protocol that she goes through" before coming into the emergency department. Patient states she has "kidney cysts and chronic pancreatitis" so she frequently has flank and abdominal pain. Patient has had associated nausea, urinary frequency, chills, and feeling "clammy". Patient denies any fevers, vaginal discharge, or dysuria. TRAVEL OUTSIDE OF THE [place] IN LAST 30 DAYS: No - Related Data Allergies/Adverse Reactions: adhesive tape Allergy (Verified 06/06/18 14:44) aloe Allergy (Verified 06/06/18 14:44) butorphanol [From Stadol] Allergy (Verified 06/06/18 14:44) erythromycin base Allergy (Verified 06/06/18 14:44) exemestane [From Aromasin] Allergy (Verified 06/06/18 14:44) ketorolac [From Toradol] Allergy (Verified 06/06/18 14:44) latex Allergy (Verified 06/06/18 14:44) levofloxacin [From Levaquin] Allergy (Verified 06/06/18 14:44) morphine Allergy (Verified 06/06/18 14:44) piperacillin Allergy (Verified 06/06/18 14:44) promethazine [From Phenergan] Allergy (Verified 06/06/18 14:44) Sulfa (Sulfonamide Antibiotics) Allergy (Verified 06/06/18 14:44) sulfamethoxazole [From Bactrim] Allergy (Verified 06/06/18 14:44) tazobactam Allergy (Verified 06/06/18 14:44) tramadol Allergy (Verified 06/06/18 14:44) trimethoprim [From Bactrim] Allergy (Verified 06/06/18 14:44) bactrin Allergy (Uncoded 06/06/18 14:44) eggs Allergy (Uncoded 06/06/18 14:44) gi cocktail Allergy (Uncoded 06/06/18 14:44) walnuts Allergy (Uncoded 06/06/18 14:44) zosyn Allergy (Uncoded 06/06/18 14:44) Past Medical History - General Information source: Patient - Social History Smoking Status: Never Smoker Cigarette use (# per day): No Frequency of alcohol use: None Drug Abuse: None Lives with: Family Family History: None Patient has suicidal ideation: No Patient has homicidal ideation: No - Past Medical History Cardiac Medical History: Reports: Hx Hypercholesterolemia, Hx Hypertension Endocrine Medical History: Reports: Hx Diabetes Mellitus Type 1 Renal/ Medical History: Comment Only: Hx Kidney Stones - kidney cyst, kidney stones Past Surgical History: Reports: 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 denies: Fever EENT: No symptoms reported Cardiovascular: No symptoms reported Respiratory: No symptoms reported Gastrointestinal: See HPI, Nausea Genitourinary: See HPI, Frequency, Flank pain - right. denies: Dysuria, Discharge Female Genitourinary: No symptoms reported Musculoskeletal: No symptoms reported Skin: No symptoms reported Hematologic/Lymphatic: No symptoms reported Neurological/Psychological: No symptoms reported -: Yes All other systems reviewed and negative Physical Exam - Vital signs Vitals: Temp Pulse Resp BP Pulse Ox 99.0 F 103 H 16 181/83 H 98 06/06/18 14:59 06/06/18 14:59 06/06/18 14:59 06/06/18 14:59 06/06/18 14:59 - Notes Notes: PHYSICAL EXAM GENERAL: Alert, interacts well. No acute distress. HEAD: Normocephalic, atraumatic. EYES: Pupils equal, round, and reactive to light. Extraocular movements intact. ENT: Oral mucosa moist, tongue midline. NECK: Full range of motion. Supple. Trachea midline. LUNGS: Clear to auscultation bilaterally, no wheezes, rales, or rhonchi. No respiratory distress. HEART: Regular rate and rhythm. No murmurs, gallops, or rubs. ABDOMEN: Soft, non-tender. Non-distended. Bowel sounds present in all 4 quadrants. No guarding, rigidity, or rebound. BACK: Bilateral CVA tenderness to gentle palpation, Right > Left. EXTREMITIES: Moves all 4 extremities spontaneously. No edema, radial and dorsalis pedis pulses 2/4 bilaterally. No cyanosis. NEUROLOGICAL: Alert and oriented x3. Normal speech. PSYCH: Normal affect, normal mood. SKIN: Warm, dry, normal turgor. No rashes or lesions noted. Course - Re-evaluation Re-evalutation: 06/06/18 18:36 CBC unremarkable, CMP shows elevated glucose of 229 otherwise unremarkable, urinalysis shows positive nitrates, 3 WBCs, no leukocyte esterase, 1+ bacteria, no signs of blood. CT scan of the abdomen pelvis is unremarkable, no signs of hydronephrosis, hydroureter, perinephric stranding or stones. At present patient will be treated for a urinary tract infection. Given the fact that she is complaining of pain going into her flank patient will be started on doxycycline rather than Macrobid. Patient states Macrobid is what she usually takes however this does not work for something that is outside of the bladder. Patient is agreeable to taking doxycycline but states it does cause some nausea, patient will be given Zofran to use at home as well. Advised to use Pyridium for the pain. Discharged home. - Vital Signs Vital signs: Temp Pulse Resp BP Pulse Ox 98.7 F 98 16 162/78 H 98 06/06/18 18:58 06/06/18 18:58 06/06/18 18:58 06/06/18 18:58 06/06/18 18:58 - Laboratory Result Diagrams: 06/06/18 16:59 06/06/18 16:59 Laboratory results interpreted by me: 06/06/18 06/06/18 15:44 16:59 Glucose 229 H Urine Nitrite POSITIVE H Discharge - Discharge Clinical Impression: Urinary tract infection Qualifiers: Urinary tract infection type: acute cystitis Hematuria presence: without hematuria Qualified Code(s): N30.00 - Acute cystitis without hematuria Condition: Stable Disposition: HOME, SELF-CARE Additional Instructions: Urinary Tract Infection Your evaluation indicates that you have a urinary tract infection. This is due to germs growing in the bladder. This is a common problem. This infection usually responds quickly to antibiotics. Your antibiotic should be taken exactly as prescribed. Drink plenty of fluids -- three to four quarts a day. Occasionally, a bladder anesthetic will be prescribed to help stop the fee ling of urgency until the antibiotic has a chance to clear the infection. This may cause your urine to be dark orange. This is Azo available [id number] also known as Pyridium. Please take 200 mg every 8 hours as needed for pain for the next 3 days. Certain urine infections require a culture. If the doctor obtained a culture, the results will be back in two days. You should call to see if a change in treatment is needed. A repeat urinalysis after you finish treatment is often recommended. The physician will let you know if further testing is required. Call the doctor if you develop fever, chills, flank pain, inability to urinate, or blood in the urine. Prescriptions: Doxycycline Hyclate 100 mg PO BID #10 capsule Phenazopyridine HCl [Pyridium 200 mg Tablet] 200 mg PO TID #10 tablet I personally performed the services described in the documentation, reviewed and edited the documentation which was dictated to the scribe in my presence, and it accurately records my words and actions.
== END 2018-06-06 18:58 | disposition home or self-care (01) ==
LOC: ER 14:29
DX: N30.00 Acute cystitis without hematuria (principal); E10.65 Type 1 diabetes mellitus with hyperglycemia; R68.83 Chills (without fever); R10.9 Unspecified abdominal pain; R35.0 Frequency of micturition; R11.0 Nausea; I10 Essential (primary) hypertension; Z91.048 Other nonmedicinal substance allergy status; Z88.5 Allergy status to narcotic agent; Z88.1 Allergy status to other antibiotic agents; Z88.8 Allergy status to other drugs, medicaments and biological substances; Z91.040 Latex allergy status; Z88.2 Allergy status to sulfonamides; Z91.012 Allergy to eggs; Z91.018 Allergy to other foods; Z87.442 Personal history of urinary calculi
CPT/HCPCS: 99284; 96374; 96375; 36415; 85025; 80053; 81001; 74176; J1170; J3490; J2405; J7030